=== PATIENT | female | born 1990 | race African-American/Black ===

== ENCOUNTER 2018-08-06 16:46 | Emergency (ER) | payer MEDICAID ==
[~2018-08-06] VITALS: Ht 162.6 cm; Wt 113.6 kg
[~2018-08-06 16:46] MED LIST: METH4TAB81 PO; NO HOME MEDS; PSEU-225 PO
[2018-08-06 16:58] VITALS: BP 144/78
[2018-08-06] MEDS ORDERED: ibuprofen tablet 400 MG TABLET PO ONE (19:35)
== END 2018-08-06 19:51 | disposition home or self-care (01) ==
LOC: ER 16:47
DX: S46.911A Strain of unspecified muscle, fascia and tendon at shoulder and upper arm level, right arm, initial encounter (principal); Z79.899 Other long term (current) drug therapy; X50.9XXA Other and unspecified overexertion or strenuous movements or postures, initial encounter; Y93.89 Activity, other specified; Y92.89 Other specified places as the place of occurrence of the external cause; Y99.8 Other external cause status
CPT/HCPCS: 99282

== ENCOUNTER 2020-09-25 13:39 | Emergency (ER) | payer MEDICAID ==
[~2020-09-25] VITALS: Ht 162.6 cm; Wt 127.3 kg
[2020-09-25 13:50] VITALS: BP 176/98
[2020-09-25] MEDS ORDERED: PSEU-259 PO (14:01)
== END 2020-09-25 14:07 | disposition home or self-care (01) ==
LOC: ER 13:40
DX: H91.92 Unspecified hearing loss, left ear (principal); Z79.899 Other long term (current) drug therapy
CPT/HCPCS: 99282

== ENCOUNTER 2020-12-18 11:47 | Emergency (ER) | payer MEDICAID ==
[~2020-12-18] VITALS: Ht 162.6 cm; Wt 127.3 kg
[~2020-12-18 11:47] MED LIST changes: +PSEU-259 PO
[2020-12-18 11:50] VITALS: BP 147/93
[2020-12-18] MEDS ORDERED: ERYT1OIN6 EACHEYE (12:24)
== END 2020-12-18 12:15 | disposition home or self-care (01) ==
LOC: ER 11:47
DX: H10.9 Unspecified conjunctivitis (principal)
CPT/HCPCS: 99283

== ENCOUNTER 2024-06-30 10:22 | Emergency (ER) | payer MEDICAID ==
[~2024-06-30] VITALS: Ht 162.6 cm; Wt 127.3 kg
[2024-06-30 10:24] VITALS: TEMP 97
[2024-06-30] MEDS ORDERED: POLOS EACHEYE (11:33)
--- NOTE | 2024-06-30 11:34 | Physician Documentation ---
History of Present Illness ~ Chief Complaint: Eye Pain Stated Complaint: POSS PINK EYE Time Seen by MD: 11:25 OK to notify your PCP?: Yes Primary Medical Doctor: [facility] Source: patient Mode of Arrival: POV Exam Limitations: no limitations HPI This is a 33-year-old female who comes in complaining of mild eye irritation with redness and yellowish stringy discharge. The patient has had these symptoms for the past day. She is not complaining of any significant pain or decrease in vision. 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 Medication Reconciliation Allergies: Coded Allergies: No Known Allergies (Unverified , 06/30/24) Scheduled Methylprednisolone (Medrol Dosepak), 4 MG PO DAILY Pseudoephedrine Hcl (Sudafed), 30 MG PO Q6H Pseudoephedrine Hcl (SUDAFED tablet), 1 TAB PO Q8H Miscellaneous Medications Home Med List (No Home Medications), (Reported) Past Medical History Past Medical History: Herpes Zoster Past Surgical History: no surgical history Alcohol Use: None Drug Use: none Lives with: Family Lives In: Home Occupation: employed, student Physical Exam Vital Signs: Temperature: 97.0, Heart Rate: 84, Respiratory Rate: 16, BP: 140/93, Pulse Oximetry: 98, Weight: 127.270 Pulse Oximetry Reflects: adequate oxygenation General Appearance: alert, WD/WN, no apparent distress Eye Lid: normal inspection Conjunctiva: discharge (Positive yellowish white discharge from the right eye.), other (There is faint erythema of the bilateral conjunctiva right greater than left.) Cornea: normal inspection Pupils/EOM/Fundus: PERRLA Progress Results/Orders Results/Orders Vital Signs 06/30/24 10:24 Temp 97.0 Pulse 84 Resp 16 B/P (MAP) 140/93 Pulse Ox 98 Medical Decision Making Findings The patient appears to have bacterial conjunctivitis clinically. We are going to place her on Polytrim ophthalmic solution that she can instill into both eyes every 4 hours and I instructed her to increase hand washing, isolate from others and has a warm compresses to clear out any discharge from the eye. Follow up with the primary care physician for recheck in the next couple of days and return to the ER for any worsening or concerning symptoms. Additional Comment Bacterial conjunctivitis. Viral conjunctivitis. Allergic conjunctivitis. Departure Disposition: HOME / SELF CARE / HOMELESS Impression: Primary Impression: Conjunctivitis Condition: Stable Discharge Instructions: Bacterial Conjunctivitis, Adult, [id number] Additional Instructions: In his still the drops in both eyes every 4 hours. Use a warm washcloth to clear out any discharge from the eyes in increase hand washing. Follow up with the primary care physician for recheck in the next one or two days and return to the ER for any worsening or concerning symptoms. Referrals: NO PRIMARY CARE PROVIDER (PCP) Prescriptions Polymyxin B Sulfate/Tmp Opth* (Polytrim Ophthalmic Drops*) 10 Ml Bottle 1 DRP EACHEYE Q4H for 7 Days, #10 ML Prov: BRITT FOWLER 06/30/24 Signature Scribe Signature: No scribe Attestation: The note accurately reflects work and decisions made by me.Britt SHI 06/30/24 11:34 BRITT FOWLER June 30, 2024 11:34
[2024-06-30 11:50] VITALS: BP 137/100; PULSE 80; RESP 18; O2SAT 99
== END 2024-06-30 11:51 | disposition home or self-care (01) ==
LOC: ER 10:22
DX: H10.9 Unspecified conjunctivitis (principal); Z79.899 Other long term (current) drug therapy
CPT/HCPCS: 99283